=== PATIENT | male | born 1950 | race Two or more races ===

== ENCOUNTER 2025-05-27 07:37 | Day surgery (SDC) | payer MEDICAID, OTHER ==
[~2025-05-27] VITALS: Ht 177.8 cm; Wt 86.2 kg
[2025-05-27] MEDS ORDERED: LIDOCAINE VISCOUS 2% 15ML UD MT ONE (09:15)
[2025-05-27] MEDS ORDERED: MIDAZOLAM HCL 2MG/2ML 2ml VIAL (1mg/ml) IV ONE (09:15)
[2025-05-27] MEDS ORDERED: fentaNYL CITRATE 100 MCG/2 ML VL IV ONE (09:15)
[2025-05-27] MEDS ORDERED: IODIXANOL 320MG/ML 100ML BTL IV ONE (11:46)
--- NOTE | 2025-05-27 12:15 | DVHOP2 ---
Operative Report Operative Report CARDIAC TUNNEL INSPECTOR PROCEDURE REPORT [place], [place] Date of Service: 05/27/25 Motors Assembler: Marissa Nj MD PROCEDURES PERFORMED: trans esophageal echocardiogram, conscious sedation <15 mins, doppler assesment complete CHERY, PREOPERATIVE DIAGNOSES: mitral regurg POSTOP DIAGNOSIS: severe mitral regurg DESCRIPTION OF PROCEDURE: The patient or appropriate family signed informed consent understanding the risks, benefits and alternatives of the procedure, they wished to proceed. The patient was brought to the cardiac chemical laboratory tester [place] the patient was given 15 ml of oral viscous lidocaine. the patient was placed in a left lateral decubitus position with bite block in mouth. NExt conscious sedation was administered per chemical laboratory tester protocol with __1 mg of versed and _50__ mcg of fentanyl. Next a CHERY probe was advanced to the mid esophagus with ease and multiple planar images obtained. At the completion of the procedure , probe was removed and there were no immediate complications. FINDINGS: Left Ventricle: Normal LV size and function, LVEF estimated at 65% Right Ventricle: NOrmal RV size and function Left atrium: enlarged, Right atrium normal Left atrial appendage: no thrombus noted, Aortic valve: trileaflet valve, no severe or AI Mitral Valve: suspected P2 prolapse, ?flail chrodae, posterior leaflet prolapses, severe eccentric MR that is anteriorly directed, Tricuspid Valve: mild tricuspid regurgitaiton, no TS Pulmonic Valve: strucutrally normal, no severe PIor PS Interatrial septum: negative color flow for R to L shunt, negative bubble study Ascending aorta: no severe plaquing MARISSA NJ MD May 27, 2025 12:15
[2025-05-27] MEDS ORDERED: ANGIOMAX 250 MG VIAL IV ONE (12:22)
[2025-05-27] MEDS ORDERED: VERAPAMIL 2.5MG/ML INJ 2ML VIAL IV ONE (12:22)
[2025-05-27] MEDS ORDERED: LIDOCAINE 2%HCL (LOCAL ANESTH.) INJ 20ML MDV ONE (12:22)
[2025-05-27] MEDS ORDERED: HEPARIN SODIUM (PORCINE) 5000 UNITS/ML 1ML VIAL ONE (12:22)
[2025-05-27 13:05] VITALS: BP 137/75; PULSE 63; RESP 16; TEMP 97.7; O2SAT 91
--- NOTE | 2025-05-27 13:08 | DVHOP2 ---
Operative Report Operative Report CARDIAC HOSPITALITY ASSOCIATE PROCEDURE REPORT [place], [place] Date of Service: 05/27/25 Business Development Director: Marissa jN MD PROCEDURES PERFORMED: Coronary angiogram, left heart catheterization, conscious sedation administration and supervision, less than 15 minutes; fluoroscopy use and interpretation. Right heart cath, LVEDP, LV angiogram, PREOPERATIVE DIAGNOSES: severe MR POSTOP DIAGNOSIS: severe MR DESCRIPTION OF PROCEDURE: The patient or appropriate family signed informed consent understanding the risks, benefits and alternatives of the procedure, they wished to proceed. The patient was brought to the cardiac labview programmer [place]. The patient was prepped in a sterile fashion. Sedation was used per cardiac cath protocol. I administered 2 mL of 2% lidocaine to the right wrist. With an antegrade front wall puncture. I cannulated the right radial artery and placed a 6-B[place] Glidesheath slender. Next, an intra-arterial spasmolytic was administered. Next, a - 6French [place] catheter andpgitail and were used for coronary angiogram and LVEDP measurement and pressure pullback. At the completion of procedure, all guides and wires were removed, and there were no immediate complications. [facility] heart cath was obtained and performed via 6F glidesheat in R AC vein. i was able to enter the RV and measure RV and RA. i couldnt access PA but RV pressure was normal 4000 U of IV heparin given FINDINGS: RCA: Moderate vessel off the right sinus of Valsalva, there is no severe flow limiting stenosis. 30% distal RCA stenosis LEFT MAIN: large size left main, it bifurcates into LAD and circumflex. no severe stenosis. CIRCUMFLEX: Moderate caliber vessel coming off the left main with no flow limiting stenosis. distal CX bifurcation of 50 % stennosis at OM LAD: LAD is a moderate caliber vessel coming of the left main. prox and mid LAD have mild diffuse plaque. D1 is patent. D2 has ostial 90% stenosis but small vessel RA : 3 mmhg RV:28/1/3 LVEDP of 15 mmhg LV gram: LV dilated, LVEF 65%, LA opacifies consistent with significant mitral regurg CONCLUSIONS: 1. moderate non critical CAD PLAN: Aggressive risk factor modification and medical management for the patient. consideration of MV repair vs replacement MARISSA NJ MD May 27, 2025 13:08
[2025-05-27 13:20] VITALS: BP 108/75; PULSE 62; RESP 18; O2SAT 91
[2025-05-27 13:35] VITALS: BP 109/70; PULSE 60; RESP 20; O2SAT 92
[2025-05-27 13:50] VITALS: BP 113/67; PULSE 63; RESP 23; O2SAT 91
[2025-05-27 14:05] VITALS: BP 110/74; PULSE 61; RESP 93; O2SAT 93
== END 2025-05-27 15:17 | disposition home or self-care (01) ==
LOC: CATH 07:37
PROVIDERS: ATTEND Internal Medicine
DX: I25.10 Atherosclerotic heart disease of native coronary artery without angina pectoris (principal); R06.02 Shortness of breath; I08.1 Rheumatic disorders of both mitral and tricuspid valves
CPT/HCPCS: 93312; 93325; 93460; C1769; C1894; J1644; J2250; J3010; J7030; Q9967; 99152; 99153